=== PATIENT | female | born 1995 | race Caucasian/White ===

== ENCOUNTER 2017-03-28 16:49 | Emergency (ER) | payer BC ==
--- NOTE | 2017-03-28 19:03 | EDM.PDOC ---
ED HPI GENERAL MEDICAL PROBLEM - General Chief Complaint: Neurological Problem Stated Complaint: VISION PROBLEMS W/NUMBNESS AND TINGLING IN LIMBS Time Seen by Provider: 03/28/17 17:21 Source of Information: Reports: Patient History Limitations: Reports: No Limitations - History of Present Illness INITIAL COMMENTS - FREE TEXT/NARRATIVE: 21-year-old female presents for evaluation and treatment of vision changes. Reports that around 1400 today she was driving. States that her vision became narrowed. She states that she then experienced numbness in her left hand and a headache. She currently reports that the headache is a 6 out of 10 and located behind her eyes and in the frontal region. She reports associated symptoms of nausea. Reports her vision has returned to normal. She then experienced numbness and tingling around her mouth. That has since resolved as well. Currently has numbness and tingling to the right hand. She denies any fevers, sore throat, earaches, cough or change in ambulation. Reports she does not get many headaches. Patient states she is healthy with no known medical conditions. Patient reports she is currently on her menstrual cycle. Onset: Today Headache Pain Score (Numeric/FACES): 6 - Related Data Allergies Allergy/AdvReac Type Severity Reaction Status Date / Time No Known Allergies Allergy Verified 03/28/17 16:58 Home Meds: Home Meds Control 1 tab PO DAILY 03/28/17 [History] Past Medical History HEENT History: Reports: Impaired Vision Neurological History: Reports: Concussion - Past Surgical History HEENT Surgical History: Reports: Adenoidectomy, Tonsillectomy Social & Family History - Family History Family Medical History: Noncontributory - Tobacco Use Smoking Status *Q: Never Smoker - Caffeine Use Caffeine Use: Reports: Coffee - Recreational Drug Use Recreational Drug Use: No ED ROS GENERAL - Review of Systems Review Of Systems: See Below Constitutional: Denies: Fever HEENT: Reports: Vision Change (now resolved. reports narrowed vision. ). Denies : Ear Pain, Throat Pain Respiratory: Denies: Cough Neurological: Reports: Headache, Numbness, Tingling. Denies: Syncope, Trouble Speaking, Gait Disturbance ED EXAM, NEURO - Physical Exam Exam: See Below Exam Limited By: No Limitations General Appearance: Alert, WD/WN, No Apparent Distress Eye Exam: Bilateral Eye: EOMI, Normal Inspection, PERRL Ears: Normal External Exam, Normal Canal, Hearing Grossly Normal, Normal TMs Nose: Normal Inspection Throat/Mouth: Normal Inspection, Normal Lips, Normal Voice, No Airway Compromise Neck: Normal Inspection Respiratory/Chest: No Respiratory Distress, Lungs Clear, Chest Non-Tender Cardiovascular: Normal Peripheral Pulses, Regular Rate, Rhythm, No Murmur GI/Abdominal: Normal Bowel Sounds Neurological: Alert, Normal Mood/Affect, Normal Dorsiflexion, CN II-XII Intact, Normal Plantar Flexion, Normal Gait, Oriented x 3, Other (Normal finger to nose testing. Normal [id number] testing. Normal rapid hand movements. Normal gait. Normal heel to toe.) Extremities: Normal Inspection Psychiatric: Normal Affect, Normal Mood Skin Exam: Warm, Dry, Normal Color Course - Vital Signs Last Recorded V/S: Last Vital Signs Temp 36.2 C 03/28/17 16:55 Pulse 107 H 03/28/17 16:55 Resp 18 03/28/17 16:55 BP 139/100 H 03/28/17 16:55 Pulse Ox 99 03/28/17 16:55 - Orders/Labs/Meds Labs: Laboratory Tests 03/28/17 03/28/17 03/28/17 Range/Units 17:45 17:45 17:45 WBC 8.50 (3.98-10.04) K/mm3 RBC 5.10 (3.98-5.22) M/mm3 Hgb 14.1 (11.2-15.7) gm/L Hct 42.2 (34.1-44.9) % MCV 82.7 (79.4-94.8) fl MCH 27.6 (25.6-32.2) pg MCHC 33.4 (32.2-35.5) g/dl RDW Std Deviation 38.6 (36.4-46.3) fL Plt Count 354 (182-369) K/mm3 MPV 9.4 (9.4-12.3) fl Neut % (Auto) 77.0 H (34.0-71.1) % Lymph % (Auto) 15.4 L (19.3-51.7) % [place] % (Auto) 7.3 (4.7-12.5) % Eos % (Auto) 0 L (0.7-5.8) Baso % (Auto) 0.1 (0.1-1.2) % Neut # (Auto) 6.54 H (1.56-6.13) K/mm3 Lymph # (Auto) 1.31 (1.18-3.74) K/mm3 [place] # (Auto) 0.62 H (0.24-0.36) K/mm3 Eos # (Auto) 0.00 L (0.04-0.36) K/mm3 Baso # (Auto) 0.01 (0.01-0.08) K/mm3 Sodium 140 (136-145) mEq/L Potassium 3.8 (3.5-5.1) mEq/L Chloride 102 (98-107) mEq/L Carbon Dioxide 27 (21-32) mEq/L Anion Gap 14.8 (5-15) BUN 11 (7-18) mg/dL Creatinine 1.1 H (0.55-1.02) mg/dL Est Cr Clr Drug Dosing 78.67 mL/min Estimated GFR (MDRD) > 60 (>60) mL/min BUN/Creatinine Ratio 10.0 L (14-18) Glucose 117 H (74-106) mg/dL Calcium 9.2 (8.5-10.1) mg/dL Magnesium 2.0 (1.8-2.4) mg/dl Total Bilirubin 0.4 (0.2-1.0) mg/dL AST 34 (15-37) U/L ALT 38 (14-59) U/L Alkaline Phosphatase 71 (46-116) U/L Total Protein 7.9 (6.4-8.2) g/dl Albumin 4.0 (3.4-5.0) g/dl Globulin 3.9 gm/dL Albumin/Globulin Ratio 1.0 (1-2) TSH 3rd Generation 0.800 (0.358-3.74) uIU/mL HCG, Qual Negative (NEGATIVE) Meds: Medications Discontinued Medications Generic Name Dose Route Start Last Admin Trade Name Freq PRN Reason Stop Dose Admin Ketorolac Tromethamine 60 mg 03/28/17 19:12 03/28/17 19:39 Toradol IM 03/28/17 19:13 60 mg ONETIME ONE Administration Promethazine HCl 12.5 mg 03/28/17 19:12 03/28/17 19:40 Phenergan IM 03/28/17 19:13 12.5 mg ONETIME ONE Administration - Radiology Interpretation Free Text/Narrative:: Ct of the head without contrast impression per [facility]: No acute intracranial process. - Re-Assessments/Exams Free Text/Narrative Re-Assessment/Exam: 03/28/17 19:12 I reviewed the labs and imaging results patient. We will order her some Toradol and Phenergan at this time. 03/28/17 20:09 Patient reports significant improvement with the Toradol and Phenergan. She is anxious to go home at this time. Discharge instructions as documented. Departure - Departure Time of Disposition: 20:37 Disposition: Home, Self-Care 01 Condition: Fair Clinical Impression: Atypical migraine - Discharge Information Instructions: Migraine Headache, [id number] Referrals: PCP,None [Primary Care Provider] - Forms: ED Department Discharge Additional Instructions: go home and rest in a dark quiet room. make sure are you are drinking plenty of fluids. If you continue to have problems with migraines recommend follow-up with family medicine. Recommend Kathie Pritchett at the [facility]. Call schedule with her. Please return to the ER if your symptoms change or worsen.
[2017-03-28] MEDS ORDERED: Promethazine 25 MG/ML SDV IM ONE (19:12)
[2017-03-28] MEDS ORDERED: Ketorolac 60 MG/2 ML SDV IM ONE (19:12)
--- NOTE | 2017-03-29 10:05 | CT ---
Head CT Technique: Multiple axial sections through the brain were obtained. Intravenous contrast was not utilized. Comparison: No prior intracranial imaging. Findings: Ventricles along with basal cisterns and sulci over the convexities are within normal limits for the patient's age. No abnormal parenchymal densities are seen. No evidence of intracranial hemorrhage. No midline shift or mass effect is seen. Bone window settings were reviewed which show no acute calvarial abnormality. There is mild mucosal thickening noted within the right sphenoid sinus. Impression: 1. Mild mucosal thickening within the right sphenoid sinus. 2. No acute intracranial abnormality is identified. Diagnostic code #2 I agree with preliminary report issued by [facility] ([facility] report finalized on 03/28/17, 8:05 PM Central Time)
== END 2017-03-28 20:48 | disposition home or self-care (01) ==
LOC: JD.ED 16:49
DX: G43.809 Other migraine, not intractable, without status migrainosus (principal)
CPT/HCPCS: 36415; 70450; 80053; 83735; 84443; 84703; 85025; 96372; 99284; J1885; J2550